=== PATIENT | male | born 1980 | race Two or more races ===

== ENCOUNTER 2019-07-21 00:03 | Emergency (ER) | payer MEDICAID ==
[~2019-07-21] VITALS: Ht 167.6 cm; Wt 72.7 kg
[2019-07-21 00:16] VITALS: BP 179/112
[2019-07-21] MEDS ORDERED: BENA40TA9 PO (00:19)
[2019-07-21] MEDS ORDERED: SEVE800T17 PO (00:19)
[2019-07-21] MEDS ORDERED: PENICILLIN V POTASSIUM 500 MG TABLET PO ONE (01:45)
[2019-07-21] MEDS ORDERED: KETOROLAC TROMETHAMINE 60 MG/2 ML VIAL IM ONE (01:45)
== END 2019-07-21 02:04 | disposition home or self-care (01) ==
LOC: EMS 00:03
DX: K08.89 Other specified disorders of teeth and supporting structures (principal); I10 Essential (primary) hypertension; F32.9 Major depressive disorder, single episode, unspecified
CPT/HCPCS: 96372; 99283; J1885